=== PATIENT | female | born 2000 | race Caucasian/White ===

== ENCOUNTER 2018-07-06 13:54 | Inpatient (IN) | payer MEDICAID ==
[~2018-07-06] VITALS: Ht 162.6 cm; Wt 62.0 kg
--- NOTE | 2018-07-06 18:08 | QN ---
Documentation Comment Suspected Ectopic vs vs threatened d ,She has an IUD in place I will be leaving at 7 PM and will take over the care of the patient AMARILIS MCELROY M.D. Jul 06, 2018 18:08
--- NOTE | 2018-07-06 19:22 | ERD ---
ER Documentation Chief Complaint Chief Complaint pt has pelvic pain x1 month post iud placement. referred to ER HPI History of Present Illness: 17-year-old female with no past medical history coming in today with complaint of pelvic pain that been present for 1 month. Patient reports having IUD placed approximately 1 month ago. Patient reports going to her family nurse practitioner today and she was unable to feel IUD so she was referred to the emergency department for possible embedded IUD. Patient reports that she has been having some intermittent vaginal bleeding similar to spotting since IUD is in place, but in the past week she has noticed increased bleeding similar to a menstrual cycle. At home pharmacological/nonpharmacological treatment for symptoms: DENIES Denies social concerns; Denies recent foreign travel ROS All systems reviewed and are negative except as per history of present illness. Allergies Allergies: Coded Allergies: No Known Allergy (Unverified , 07/06/18) PMhx/Soc Medical and Surgical Hx: pt denies Medical Hx, pt denies Surgical Hx Hx Alcohol Use: No Hx Tobacco Use: No Smoking Status: Never smoker FmHx Family History: No diabetes, No coronary disease Physical Exam Vitals Vital Signs Date Temp Pulse Resp B/P (MAP) Pulse Ox O2 O2 Flow FiO2 Time Delivery Rate 07/06/18 98.6 80 18 128/67 7 14:16 (87) Physical Exam Const: No acute distress Head: Atraumatic Eyes: Normal Conjunctiva ENT: Normal External Ears, Nose and Mouth. Neck: Full range of motion. No meningismus. Resp: Clear to auscultation bilaterally Cardio: Regular rate and rhythm, no murmurs Abd: Soft, suprapubic tenderness, non distended. Normal bowel sounds. Skin: No petechiae or rashes Back: No midline or flank tenderness Ext: No cyanosis, or edema Neur: Awake and alert Psych: Normal Mood and Affect Mild amount of blood noted to vaginal canal. Result Diagram: 07/06/18 1546 07/06/18 1817 Results 24 hrs Laboratory Tests Test 07/06/18 14:46 07/06/18 15:46 07/06/18 18:17 Bedside Urine pH (LAB) 7.0 Bedside Urine Protein (LAB) Negative Bedside Urine Glucose (UA) Negative Bedside Urine Ketones (LAB) Negative Bedside Urine Blood 3+ Bedside Urine Nitrite (LAB) Negative Bedside Urine Leukocyte Esterase 1+ (L POC Beta HCG, Qualitative POSITIVE White Blood Count 8.2 10^3/ul Red Blood Count 4.14 10^6/ul Hemoglobin 12.3 g/dl Hematocrit 37.0 % Mean Corpuscular Volume 89.4 fl Mean Corpuscular Hemoglobin 29.7 pg Mean Corpuscular 33.2 g/dl Hemoglobin Concent Red Cell Distribution Width 12.0 % Platelet Count 284 10^3/UL Mean Platelet Volume 11.4 fl Immature Granulocytes % 0.100 % Neutrophils % 60.9 % Lymphocytes % 28.1 % Monocytes % 7.7 % Eosinophils % 2.3 % Basophils % 0.9 % Nucleated Red Blood Cells % 0.0 /100WBC Immature Granulocytes # 0.010 10^3/ul Neutrophils # 5.0 10^3/ul Lymphocytes # 2.3 10^3/ul Monocytes # 0.6 10^3/ul Eosinophils # 0.2 10^3/ul Basophils # 0.1 10^3/ul Nucleated Red Blood Cells # 0.0 10^3/ul Serum HCG, Qualitative POSITIVE Beta HCG, Quantitative 1013.5 mIU/ml Prothrombin Time 12.5 Sec Prothrombin Time Ratio 1.0 INR International Normalized Ratio 0.92 Activated Partial Thromboplast 27.5 Sec Time Sodium Level 141 mmol/L Potassium Level 4.2 mmol/L Chloride Level 104 mmol/L Carbon Dioxide Level 27 mmol/L Anion Gap 10 Blood Urea Nitrogen 8 mg/dl Creatinine 0.63 mg/dl Est Glomerular Filtrat Rate mL/min > 60 mL/min Glucose Level 88 mg/dl Calcium Level 10.5 mg/dl Total Bilirubin 0.2 mg/dl Direct Bilirubin 0.00 mg/dl Indirect Bilirubin 0.2 mg/dl Aspartate Amino Transf (AST/SGOT) 17 IU/L Alanine 19 IU/L Aminotransferase (ALT/SGPT) Alkaline Phosphatase 87 IU/L Total Protein 7.8 g/dl Albumin 4.4 g/dl Globulin 3.40 g/dl Albumin/Globulin Ratio 1.29 Current Medications Medications Dose Sig/Roney Start Time Status Last (Trade) Ordered Route PRN Stop Time Admin Dose Reason Admin Lactated 1,000 ml @ Q10H IV 07/06/18 Ringer's 100 mls/hr 18:30 Procedures/MDM ED course includes a thorough examination and history. Medications: -- Imaging: Abdominal and vaginal ultrasound Labs: Urine ED course: Urine was positive, will order beta quantitative, CBC, Rh, type and screen. Otherwise healthy patient presenting with constellation of symptoms likely representing possible ectopic , threatened as characterized by history, physical exam findings, imaging findings, lab findings. Beta quantitative 1004. Ultrasound results showing: IMPRESSION: Small simple cyst in the left ovary with a small amount of free fluid. IUD within the endometrium in the fundus of the uterus. .Sujit Christian MD, MD Consultation at 1600 : consulting physician Dr. Orourke to emergency department fast-track to evaluate patient. Dr. Peña wants to admit the patient to himself. Verbal orders for patient admission. would like to do procedure but due to patient eating, will have to pass the patient onto at 1900. Will add coagulation studies as well as CMP to orders. Suspicion for acute abdominal/gynecological emergency that requires hospitalization and/or surgical intervention. No respiratory distress, otherwise relatively well appearing and nontoxic. Patient hemodynamically stable. Disposition for admission. Departure Diagnosis: Primary Impression: Combined abdominal and pelvic pain Additional Impressions: Positive blood test IUD (intrauterine device) in place Condition: KATHRIN Bro NP Jul 06, 2018 19:19
[2018-07-06 21:16] VITALS: BP 122/70; PULSE 70; RESP 18; Ht 162.6 cm; Wt 62.0 kg
[2018-07-06] MEDS: LACTATED RINGER'S 1,000 ML IV SCH (21:58)
[2018-07-06] MEDS: morphine 2 MG INJ IV PRN (21:59)
[2018-07-07] MEDS: LACTATED RINGER'S 1,000 ML IV SCH ×2 (04:16→08:44)
--- NOTE | 2018-07-07 06:48 | HP ---
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 PAST MEDICAL HISTORY: Denies. PAST SURGICAL HISTORY: One . ALLERGIES: NKDA. PHYSICAL EXAMINATION: VITAL SIGNS: Stable. GENERAL: Normal. ABDOMEN: Not tender, not distended. GENITAL: There was around 2 to 3 mL fresh blood in the vaginal vault. Ultrasound was reviewed. Beta hCG is around 1000. ASSESSMENT AND PLAN: The patient is 17 years old, 2, para 0. The patient is obviously pregn ant, either its early versus ectopic versus threatened . D and C, laparo scopy and removal of ectopic and possible salpingectomy discussed with the patient. As thi s is the end of my call and the patient is not n.p.o., she was kept n.p.o. and she is advised that Dr Vicki Rasmussen will take over take call and he is going to discuss the plan of care with her either she ge ts observed for 24 to 48 hours and the labs will be rechecked or he will proceed with the surgery. R isks and benefits of each discussed with the patient. Dictated By: AMARILIS DAY/IDA Conf#: [id number] DID#: [id number]
[2018-07-07 08:00] VITALS: BP 105/60; PULSE 61; RESP 18
[2018-07-07 15:41] VITALS: BP 119/54; PULSE 65; RESP 18
[2018-07-07 19:10] VITALS: BP 101/55; PULSE 72; RESP 18
--- NOTE | 2018-07-07 19:52 | QN ---
Documentation Comment 17 years old 2 para 010 who was admitted for vaginal bleeding and abdominal pain. Currently she is doing well. She denies nausea, vomiting, shortness of breath, chest pain, headache. She states vaginal bleeding is decreasing after passing large amount of clot. Physical exam: Afebrile vital signs stable General comfortable no acute distress appropriate mood and affect Abdomen: Soft, nontender Flank: No CVA tenderness bilateral Extremities: No edema, varicose vein, thigh or calf tenderness bilateral Imaging: The uterus is normal in size with a normal appearance of the myometrium. The uterus measures 6.3 x 4.0 x 5.3 cm. The endometrial stripe is homogeneous in appearance and has the thickness of 7 mm. There is an IUD within the endometrium in the fundus of the uterus. The ovaries are normal in size and echogenicity. Normal Doppler flow is identified in both ovaries. The right ovary measures 2.3 x 1.5 x 1.9 cm. The left ovary measures 2.7 x 1.8 x 2.2 cm. There is a 1.1 cm simple cyst. There is a small amount of free fluid in the pelvis. IMPRESSION: Small simple cyst in the left ovary with a small amount of free fluid. IUD within the endometrium in the fundus of the uterus. Assessment and plan: 17 years old 2 para 010 with early versus complete . Cannot rule out ectopic . Last menstrual period was on 05/19/2018. She has IUD which placed in [facility] and 06/04/2018. Beta hCG on admission was 1013.5, repeat beta-hCG in in less than 24 hours is 700+. Labs, ultrasound, management discussed in detail with patient. She expressed understanding. All of her questions answered. Follow her closely with repeat ultrasound and beta- hCG in 48 hours. IGLESIA TEMPLE July 07, 2018 19:52
[2018-07-08] VITALS (21 sets, daily range): BP systolic 97–127; BP diastolic 53–71; PULSE 60–107; RESP 16–19
[2018-07-08] MEDS: LACTATED RINGER'S 1,000 ML IV SCH ×3 (12:09→21:40)
--- NOTE | 2018-07-08 16:12 | QN ---
Documentation Comment Patient denies any abdominal pain. Reports continuous vaginal low-grade bleeding. Denies any shortness of breath, chest pain, nausea, vomiting, dizziness or lightheadedness. Physical examination: Afebrile vital signs stable General comfortable no acute distress appropriate mood and affect Abdomen: Soft, nontender. Flank: No CVA tenderness bilateral Extremities: No edema, varicose vein, thigh or calf tenderness bilateral Pelvic exam deferred PROCEDURE: US Pelvis CLINICAL INDICATION: IUD placement. Vaginal bleeding. Positive test. TECHNIQUE: Transabdominal and transvaginal sonographic evaluation of the pelvis was performed. COMPARISON: US PELVIS 07/06/2018 FINDINGS: MEASUREMENTS: Uterus: 7.7 x 3.9 x 4.6 cm, retroverted Endometrium: 13.3 mm. Right ovary size: 3.5 x 1.5 x 2.1 cm. Left ovary size: 3.6 x 2.3 x 2.6 cm. Myometrium is heterogeneous in echotexture without fibroids. Endometrium is heterogeneous in appearance. IUD is seen within the endometrial canal. There is a tiny amount of fluid in the lower uterine segment, irregular in shape. Both ovaries are normal in size and echotexture. Normal flow to both ovaries. No adnexal mass. No free pelvic fluid. IMPRESSION: 1. IUD in the endometrium which is heterogeneously prominent which may reflect blood products. 2. Small amount of fluid in the lower uterine segment which may simply represent free fluid. A definite gestational sac is not seen. The possibility of a early IUP versus a missed AB or ectopic should be considered. Continued surveillance of serial quantitative beta HCGs and possible follow-up ultrasound is suggested. Assessment 17-year-old G1, P0 with no episode of , currently have IUD admitted for rule out ectopic hCG had been plateaued since yesterday Repeat ultrasound showed evidence of some fluid inside the uterus as well as heterogeneous prominence area that may reflect blood products IUD inside the uterus. No evidence of IUP I discussed with the patient about the possibility of ectopic still cannot be ruled out Recommended the patient to proceed with D&C with a follow-up hCG 12 hours to 24 hours after D&C Currently there is no evidence of adnexal mass or fluid fluid in the pelvis hCG level has been low. 700s and is below thousand If hCG after D&C drop significantly more than 50% in 24 hours that consistent with failed IUP otherwise with possibility of ectopic patient may be a candidate for methotrexate with close monitoring of hCG serially after D&C Currently patient is stable and asymptomatic I also discussed with the patient about possibility of Diagnostic LSC at the time of D&C if there is no evidence of POC in D&C vs Monitoring after D&C for HCG level at the discretion of the upcoming OB hospitalist Verbalized understanding. All questions were answered to patient's best satisfaction Patient was made n.p.o. Currently less than 8 hours n.p.o. She was consented for D&C removal of IUD possible laparoscopy She understands that at the time of D&C IUD removed. 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 All questions were answered to patient's satisfaction. She was consented for above procedure. She will be booked for the OR. SIMÓN MCKEON MD July 08, 2018 16:12
[2018-07-08] MEDS: morphine 2 MG INJ IV PRN (18:19)
--- NOTE | 2018-07-08 19:36 | PREAC ---
Date/Time of Note Date/Time of Note DATE: 07/08/18 TIME: 19:35 Anesthesia Eval and Record Evaluation Time Pre-Procedure Interview DATE: 07/08/18 TIME: 19:35 Age 17 Sex female NPO: 8 hrs Preoperative diagnosis INCOMPLETE Planned procedure SUCTION D&C, REMOVAL OF IUD Past Medical History Past Medical History: None () : : (2), Para: (0) Surgery & Anesthesia Issues No known issue Meds Anticoagulation: No Beta Jeanna within 24 hr: No Reason Beta Jeanna not given: Pt. not on B-Jeanna Current Medications Morphine Sulfate (morphine) 2 mg Q4H PRN IV SEVERE PAIN LEVEL 7-10 Last administered on 07/08/18at 18:19; Admin Dose 2 MG; Start 07/06/18 at 21:30 Lactated Ringer's 1,000 ml @ 100 mls/hr Q10H IV Last administered on 07/08/18at 12:09; Admin Dose 100 MLS/HR; Start 07/08/18 at 11:40 Lactated Ringer's 1,000 ml @ 125 mls/hr Q8H IV ; Start 07/08/18 at 18:32 Meds reviewed: Yes Allergies Coded Allergies: No Known Allergy (Unverified , 07/06/18) Allergies Reviewed: Yes Labs/Studies Labs Reviewed: Reviewed by anesthesiologist Result Diagram: 07/08/18 0430 07/06/18 1817 Laboratory Tests 07/08/18 04:30 test: Positive Pre-procedure Exam Last vitals Vital Signs Date Temp Pulse Resp B/P (MAP) Pulse Ox O2 O2 Flow FiO2 Time Delivery Rate 07/08/18 98.1 60 18 97/53 (68) 99 14:30 07/06/18 Room Air 21:16 Airway: Adequate mouth opening, Adequate thyromental dist Mallampati: Mallampati II Teeth: Normal Lung: Normal Heart: Normal ASA Physical Status ASA physical status: 2 Emergency: E Planned Anesthetic General/MAC: ETT Planned Pain Management Parenteral pain med Pre-operative Attestations Prior to commencing anesthesia and surgery, the patient was re-evaluated, there was verification of: *The patient's identity *The results of appropriate recent lab work and preoperative vital signs *The above evaluation not changing prior to induction *Anesthetic plan, risk benefits, alternative and complications discussed with patient/family; questions answered; patient/family understands, accepts and wishes to proceed. Benito Guzman M.D. July 08, 2018 19:36
[2018-07-08] MEDS ORDERED: OXYCODONE/ACETAMINOPHEN (5/325) TAB PO PRN ×2 (20:00)
[2018-07-08] MEDS ORDERED: FENTAnyl 50 MCG/ML VIAL IV PRN ×3 (20:00)
[2018-07-08] MEDS ORDERED: HYDROmorphONE 1 MG/5 ML IV SYRINGE IV PRN ×3 (20:00)
[2018-07-08] MEDS ORDERED: hydrALAzine 20 MG INJ IV PRN (20:00)
[2018-07-08] MEDS ORDERED: MEPERIDINE 25 MG INJ IV PRN (20:00)
[2018-07-08] MEDS ORDERED: ONDANSETRON 4 MG INJ IV PRN (20:00)
[2018-07-08] MEDS ORDERED: EPHEDrine SULFATE 50 MG/5 ML SYG IV PRN (20:00)
[2018-07-08] MEDS ORDERED: IPRATROPIUM (NEB) 0.5 MG/2.5 ML AMP HHN PRN (20:00)
[2018-07-08] MEDS ORDERED: MIDAZOLAM 1 MG/ML 2 ML INJ IV PRN (20:00)
[2018-07-08] MEDS ORDERED: TRIMETHOBENZAMIDE 100 MG/ML VIAL IM PRN (20:00)
[2018-07-08] MEDS ORDERED: ALBUTEROL 0.083% (NEB) 2.5 MG/3 ML AMP HHN PRN (20:00)
[2018-07-08] MEDS ORDERED: DIPHENHYDRAMINE 50 MG INJ IV PRN (20:00)
[2018-07-08] MEDS ORDERED: LABETALOL HCL 20MG INJ IV PRN (20:00)
[2018-07-08] MEDS ORDERED: GLYCOPYRROLATE 0.4 MG INJ ONE (20:09)
[2018-07-08] MEDS ORDERED: PROPOFOL 20 ML ONE (20:09)
[2018-07-08] MEDS ORDERED: ROCURONIUM 50 MG INJ ONE (20:10)
[2018-07-08] MEDS ORDERED: CEFAZOLIN 1 GM INJ ONE (20:10)
[2018-07-08] MEDS ORDERED: NEOSTIGMINE 3 MG/3 ML SYRINGE ONE (20:10)
[2018-07-08] MEDS ORDERED: ONDANSETRON 4 MG INJ ONE (20:10)
[2018-07-08] MEDS ORDERED: FENTAnyl 50 MCG/ML VIAL ONE (20:10)
[2018-07-08] MEDS ORDERED: DEXAMETHASONE 4 MG/ML 5 ML INJ ONE (20:10)
[2018-07-08] MEDS ORDERED: MIDAZOLAM 1 MG/ML 2 ML INJ ONE (20:10)
[2018-07-08] MEDS ORDERED: OXYTOCIN 10 UNIT INJ ONE (20:23)
[2018-07-08] MEDS ORDERED: KETOROLAC 30 MG INJ ONE (20:25)
--- NOTE | 2018-07-08 20:34 | PAC ---
Date/Time of Note Date/Time of Note DATE: 07/08/18 TIME: 20:34 Post-Anesthesia Notes Post-Anesthesia Note Last documented vital signs Vital Signs Date Temp Pulse Resp B/P (MAP) Pulse Ox O2 O2 Flow FiO2 Time Delivery Rate 07/08/18 98.1 60 18 97/53 (68) 99 14:30 07/06/18 Room Air 21:16 Activity: WNL Respiratory function: WNL Cardiovascular function: WNL Mental status: Baseline Pain reasonably controlled: Yes Hydration appropriate: Yes Nausea/Vomiting absent: Yes Benito Guzman M.D. July 08, 2018 20:34
--- NOTE | 2018-07-08 23:15 | SIPON ---
Date/Time of Note Date/Time of Note DATE: 07/08/18 TIME: 23:12 Operative Report Preoperative Diagnosis incomplete dislodged IUD Postoperative Diagnosis same , see pathologic report Operation/Procedure Performed suction curettage removal of IUD Surgeon see signature line acute care assistant MT Anesthesia: general Estimated blood loss: 10 - 50 ml's Transfusion Required none Specimen POC and IUD Grafts/Implants none Complications none JOHN CARRILLO MD July 08, 2018 23:15
--- NOTE | 2018-07-08 23:21 | PD.PPDC ---
SENIOR ACCOUNT MANAGER Discharge Instruction Diagnosis Poukp0Or Final Diagnosis: [id number] incomplete . dislodged IUD Condition [id number] Patient Condition: Fenan4e Stable Diet Hnypp8It Diet: Epgxd6m Resume Regular Diet Activity/Restrictions [id number] Activity: Pkcsr7o May Shower [id number] Restrictions: Cmavu6z No Sexual Activity Nothing in the Vagina No King No Tampons, douche Follow-up Follow-up with Physician: 2, Week/Weeks Return to clinic for Bbkyg2Ci SENIOR SALES CONSULTANT Instructions: [id number] Fever greater than 101 Chills Worsening abdominal pain Excessive Vaginal Bleeding More than 2 pads per hour Unable to tolerate diet JOHN CARRILLO MD July 08, 2018 23:21
[2018-07-09 00:20] VITALS: BP 99/53; PULSE 70; RESP 18
--- NOTE | 2018-07-09 00:40 | OPR ---
DATE OF OPERATION: 07/08/2018 PREOPERATIVE DIAGNOSIS: Incomplete dislodged intrauterine device. POSTOPERATIVE DIAGNOSIS: Incomplete dislodged intrauterine device. OPERATION PERFORMED: Suction curettage and IUD removal. SERVICE: General. ANESTHESIOLOGIST: Dr. Guzman. SURGEON: Mckenzie Delarosa MD ESTIMATED BLOOD LOSS: Less than 30 mL. PROCEDURE: Under the proper induction of general anesthesia patient was placed in dorsal lithotomy p osition. Perineal area and vagina wall were prepped and draped in usual aseptic manner. Bimanual ex amination revealed the uterus was slightly enlarged and then relatively soft and retroverted, retrofl exed. There is no palpable adnexal pathology. Weighted speculum was introduced. Cervix identified, and which was grasped with a single tooth tenaculum. Cervix opened and dilated using a No. 7 Hegar d ilator without any resistance. Cavity was sounded, which was 9 cm. Size 8 suction curette was intro duced. Intrauterine cavity was suctioned in all directions followed by sharp curettage with obtainin g of a small tissue. Prior to the suction a polyp forcep was introduced. The IUD was removed, at th e same time the piece of POC was obtained. Procedure was completed. Ten units Pitocin given through the IV and all the instruments were removed from the operative field. The patient withstood procedu re and was sent to recovery room in stable condition. Dictated By: MCKENZIE BAJWA/IDA Conf#: [id number] DID#: [id number] CC: AMARILIS MCELROY MD;*EndCC*
[2018-07-09] MEDS: LACTATED RINGER'S 1,000 ML IV SCH ×2 (02:32→07:40)
[2018-07-09 04:00] VITALS: BP 98/62; PULSE 68; RESP 18
[2018-07-09 07:46] VITALS: BP 92/51; RESP 18
--- NOTE | 2018-07-09 09:27 | DS ---
Date/Time of Note Date/Time of Note DATE: 07/09/18 TIME: 09:19 Discharge Summary Admission/Discharge Info Admit Date/Time July 08, 2018 at 11:51 Discharge Date/Time 0921 Discharge Diagnosis incomplete dislodged IUD Patient Condition: Stable Procedures suction curettage removal of IUD Hx of Present Illness 17y.o with vaginal bleeding with pelvic pain known to be with IUD,poss ectopic/early . underwent suction curettage removal of IUD during suction curettage grossly placental tissue obtained confirm the incomplete postoperatively did fine f/u at my offic in 2weeks Hospital Course same as above Follow-up Plan 2 weeks Primary Care Provider Care Physician No Primary Time spent on discharge: < 30 minutes JOHN CARRILLO MD July 09, 2018 09:27
== END 2018-07-09 09:20 | disposition home or self-care (01) | DRG 983 ==
LOC: FTE 13:54 → MS1 19:06 → OBSVTOIN 07-08 11:51
PROVIDERS: ADMIT Obstetrics & Gynecology; ATTEND Obstetrics & Gynecology
PROC: 0UPD7HZ Removal of Contraceptive Device from Uterus and Cervix, Via Natural or Artificial Opening (ICD-10-PCS; 2018-07-08)
PROC: 10D17ZZ Extraction of Products of Conception, Retained, Via Natural or Artificial Opening (ICD-10-PCS; principal; 2018-07-08 20:00)
DX: T83.32XA Displacement of intrauterine contraceptive device, initial encounter (principal); O03.1 Delayed or excessive hemorrhage following incomplete spontaneous abortion; Y76.1 Therapeutic (nonsurgical) and rehabilitative obstetric and gynecological devices associated with adverse incidents
CPT/HCPCS: 76830; 76856; 80053; 81003; 81025; 84702; 84703; 85025; 85610; 85730; 86850; 86900; 86901; 88300; 88305; G0378; J0690; J1100; J1885; J2250; J2270; J2405; J2590; J2710; J3010; J7120